=== PATIENT | female | born 1970 | race Two or more races ===

== ENCOUNTER 2024-01-02 17:11 | Emergency (ER) | payer MEDICAID, OTHER ==
[~2024-01-02] VITALS: Ht 157.5 cm; Wt 66.0 kg
[2024-01-02 18:33] VITALS: BP 122/80; PULSE 98; RESP 16; TEMP 98.2; O2SAT 96
[2024-01-02] MEDS: ELECTROLYTE 1000ML ORAL SOLN PO ONE (18:57)
[2024-01-02 20:47] LABS: Rapid Influenza A Negative (Negative); Rapid Influenza B Negative (Negative)
[2024-01-02 20:48] LABS: COVID19 ANTIGEN SOFIA FIA NEGATIVE (NEGATIVE)
== END 2024-01-02 21:28 | disposition home or self-care (01) ==
LOC: ER 17:11
DX: B34.9 Viral infection, unspecified (principal); E11.9 Type 2 diabetes mellitus without complications; Z20.822 Contact with and (suspected) exposure to COVID-19
CPT/HCPCS: 36415; 87426; 87804